=== PATIENT | male | born 1950 | race Caucasian/White ===

== ENCOUNTER 2022-10-04 10:39 | Emergency (ER) | payer MEDICARE ==
[2022-10-04 12:01] LABS: INR-International Normal Ratio 1.1; PTT 31.2 sec (22.0-33.0); Prothrombin Time 11.6 sec (9.5-12.1)
[2022-10-04 12:05] LABS: #Basophils 0.1 10x3/uL (0.0-0.2); #Eosinphils 0.2 10x3/uL (0.0-0.5); #Monocytes 0.9 10x3/uL (0.0-1.1); #Neutrophils 5.7 10x3/uL (1.5-8.4); %Basophils 0.6 % (0.0-2.0); %Eosinophils 2.2 % (0.0-6.0); %Lymphocytes 10.5 % (18.0-47.0); %Neutrophils 73.8 % (40.0-75.0); Hemoglobin 14.6 g/dL (13.5-17.5); Mean Corpuscular HGB CONC 35.1 g/dL (32.0-36.0); Mean Corpuscular Volume 96.7 fl (81.2-95.1); Mean Platelet Volume 9.6 fl (7.4-10.4); Platelet Count 170 10x3/uL (150-450); RBC Distribution Width 12.9 % (11.5-14.5); White Blood Cell (WBC) Count 7.7 10x3/uL (3.5-10.5)
[2022-10-04 12:06] LABS: ALT (SGPT) 22 U/L (8-55); AST (SGOT) 17 U/L (5-34); Albumin 3.9 g/dL (3.4-4.8); Alkaline Phosphatase 57 U/L (40-110); Anion Gap 12 mmol/L (10-20); BUN (Urea Nitrogen) 24 mg/dL (8.4-25.7); Bilirubin, Total 0.8 mg/dL (0.2-1.2); Calc. Creatinine Clearance 0 mL/min (70-130); Calcium 8.5 mg/dL (7.8-10.44); Carbon Dioxide 24 mmol/L (23-31); Chloride 107 mmol/L (98-107); Estimated GFR 90; Glucose 102 mg/dL (83-110); Potassium 4.1 mmol/L (3.5-5.1); Protein, Total 5.9 g/dL (5.8-8.1); Sodium 139 mmol/L (136-145)
[2022-10-04] MEDS ORDERED: Oxymetazoline HCl 0.05% ( 15 ML ) ONE (12:34)
[2022-10-04] MEDS ORDERED: HYDROcodone/Acetaminophen 10/325 mg Tablet ONE (12:34)
== END 2022-10-04 13:35 | disposition home or self-care (01) ==
LOC: CSHERS 10:39
DX: R04.0 Epistaxis (principal)
CPT/HCPCS: 30901; 80053; 85025; 85610; 85730; 93005